=== PATIENT | female | born 1950 | race Caucasian/White ===

== ENCOUNTER → 2019-04-26 | Outpatient (CLI) | payer SELFPAY ==
--- NOTE | 2019-04-26 12:38 | RAD ---
EXAM: Right lower extremity venous Doppler. HISTORY: Right lower extremity edema. Pain in right foot. COMPARISON: None. FINDINGS: Grayscale and Doppler analysis of the right lower extremity deep venous systems was performed with graded compression and augmentation. The common femoral, greater saphenous, superficial femoral, popliteal and calf veins were assessed. There is no evidence of deep venous thrombosis. IMPRESSION: 1. No evidence of deep venous thrombosis in the right lower extremity. Electronically signed by: Aide Simon MD (04/26/2019 12:35 PM) [id number]
== END | disposition home or self-care (01) ==
LOC: US 11:43
PROVIDERS: ATTEND Family Medicine
DX: R60.0 Localized edema (principal); M79.671 Pain in right foot
CPT/HCPCS: 93971

== ENCOUNTER → 2019-09-17 | Outpatient (CLI) | payer MEDICARE ==
[~2019-09-17] MED LIST: AZIT1PAC9 PO; IOHEXOL 350 MG/ML 100 ML VIAL. IV ONE; OXYC1TAB19 PO; PRED20TA PO
--- NOTE | 2019-09-17 14:59 | RAD ---
Examination: CT angiography chest with IV contrast HISTORY: History of elevated d-dimer COMPARISON: 05/14/2017 Technique: Axial CT angiographic images of chest were performed with IV contrast and coronal sagittal 3-D MIP reformats are performed Exposure: One or more of the following individualized dose reduction techniques were utilized for this examination: 1. Automated exposure control 2. Adjustment of the mA and/or kV according to patient size 3. Use of iterative reconstruction technique FINDINGS: Mild cardiomegaly. Coronary artery calcifications. Caliber of the aorta grossly appears unremarkable. Moderate aortic atherosclerosis. There is no evidence of filling defect identified in the main pulmonary arterial trunk and right and left main pulmonary arteries and the visualized lobar, segmental branch pulmonary arteries. Opacity identified in the right infrahilar region posteriorly less prominent compared to prior exam could be postradiation changes or residual malignancy or recurrence. Compared to 2018 this is significantly decreased in size. Linear airspace opacity identified in the left lower lobe of the lung. Moderate to severe bilateral lung emphysematous changes. Faint opacity identified in the right upper lobe of the lung measuring 1.1 cm. The visualized liver, spleen, adrenals grossly appears unremarkable. Moderate to severe compression changes of T6, T7 and T8 vertebral levels with kyphoplasty changes at T8 vertebral level. IMPRESSION: 1. No evidence of pulmonary embolism. 2. Opacity identified in the right infrahilar region posteriorly less prominent compared to prior exam could be postradiation changes or residual malignancy or recurrence. Compared to 2018 this is significantly decreased in size 3.Moderate to severe compression changes of T6, T7 and T8 vertebral levels with kyphoplasty changes at T8 vertebral level. 4. Moderate to severe bilateral lung emphysematous changes. Electronically signed by: Cresencio Gomez MD (09/17/2019 2:55 PM) [id number]
== END | disposition home or self-care (01) ==
LOC: CT 13:38
PROVIDERS: ATTEND Family Medicine
DX: I25.10 Atherosclerotic heart disease of native coronary artery without angina pectoris (principal); J43.8 Other emphysema; R06.02 Shortness of breath; I51.7 Cardiomegaly; I70.0 Atherosclerosis of aorta
CPT/HCPCS: 71275; Q9967

== ENCOUNTER 2019-09-20 20:05 | Inpatient (IN) | payer MEDICARE ==
[~2019-09-20] VITALS: Ht 157.5 cm; Wt 44.8 kg
[2019-09-20] MEDS ORDERED: IPRATRPIUM/ALBUTEROL 0.5/2.5MG 3 ML NEBU. NEB ONE ×2 (20:15→23:00)
--- NOTE | 2019-09-20 20:42 | EKG ---
[address] [address] Test Date: 2019-09-20 Test Time: 20:15:55 Pat Name: KATARINA JUNG Department: Room: Gender: F Embedded Hardware Engineer: : 1950 Requested By: HEVER ROGERS Order Number: [id number] Reading MD: Measurements Intervals Vernon Rate: 99 P: 41 ID: [id number] QRS: -44 QRSD: 74 T: 20 QT: 360 QTc: 462 Interpretive Statements SINUS RHYTHM LEFT ATRIAL ABNORMALITY ABNORMAL LEFT AXIS DEVIATION R-S TRANSITION ZONE IN V LEADS DISPLACED TO THE LEFT QRS(T) CONTOUR ABNORMALITY CONSISTENT WITH INFERIOR INFARCT PROBABLY OLD ABNORMAL ECG RI6.02 No previous ECG available for comparison
--- NOTE | 2019-09-20 20:54 | PHYS DOC ---
Past History Past Medical History: Cancer (lung), CHF, COPD, Hypertension Additional Past Surgical Histo: Left lung lobectomy Smoking: Quit Less Than 1 Year Alcohol Use: Rarely Drug Use: None General Adult EDM: Chief Complaint: DYSPNEA/RESPIRATOY DISTRESS HPI: HPI: 68 year old female presents with history of progressive shortness of breath x 1 week. Patient with pmh of COPD, lung cancer s/p lobectomy, and CHF. Reports she no longer smokes. Reports seen by PCP and started on regimen for presumed bronchitis which is not helping. Denies trauma. Denies leg swelling or calf tenderness. Denies trauma. Review of Systems: Review of Systems: Constitutional: Denies fever or chills Eyes: Denies change in visual acuity, redness, or eye pain HENT: Denies nasal congestion or sore throat Respiratory: Reports cough and shortness of breath Cardiovascular: Denies chest pain or palpitations GI: Denies abdominal pain, nausea, vomiting, or diarrhea : Denies dysuria or hematuria Musculoskeletal: Denies back pain or joint pain Integument: Denies rash or skin lesions Neurologic: Denies headache, focal weakness or sensory changes Complete systems were reviewed and found to be within normal limits, except as documented in this note. Current Medications: Current Meds: Current Medications Medications (Trade) Dose Ordered Sig/Damon Start Time Stop Time Status Last Admin Dose Admin Albuterol/ Ipratropium (Duoneb) 3 ml 1X ONCE 09/20/19 20:15 09/20/19 20:16 DC 09/20/19 20:19 3 ML Allergies: Allergies: Allergies Coded Allergies Type Severity Reaction Last Updated Verified No Known Drug Allergies 09/17/19 No Physical Exam: PE: Constitutional: Well developed, well nourished, increased respiratory effort HENT: Normocephalic, atraumatic Eyes: Conjunctiva normal, no discharge Neck: Normal range of motion, supple, no meningeal signs Lungs & Thorax: Equal chest rise and fall, increased respiratory effort Abdomen: Soft, no tenderness Skin: Warm, dry, no erythema, no rash Extremities: No tenderness, ROM intact, no edema Neurologic: Alert and oriented X 3, no focal deficits noted Psychologic: Affect normal, judgement normal Current Patient Data: Vital Signs: Vital Signs Date Time Temp Pulse Resp B/P (MAP) Pulse Ox O2 Delivery O2 Flow Rate FiO2 09/20/19 20:26 94 Venturi Mask 9.0 09/20/19 20:12 98.0 102 24 116/76 (89) EKG: EKG: @2015 NSR at 99bpm, NO ST elevation, QRS 74ms, QT/QTc 360/462ms Radiology/Procedures: Radiology/Procedures: PROCEDURE: PORTABLE CHEST 1V Chest AP portable at 2018: Reason for examination: Dyspnea. Comparison is made to previous study dated 05/16/2006. Port-A-Cath is present on the right with the tip in the superior vena cava/right atrial junction. Surgical clips are seen at the left hilum. The heart size is normal. Mediastinum is otherwise unremarkable. Lung khan show some volume loss in the left lung field with mediastinal shift and elevation of the left hemidiaphragm. No acute infiltrates or pleural effusions are seen. There appears to been resection of the left ninth rib. No acute bony abnormalities are evident. IMPRESSION: Postop changes in the left hemithorax. No acute cardiopulmonary disease evident. Electronically signed by: Michelle Greenberg MD (09/20/2019 9:25 PM) [facility] Course & Med Decision Making: Course & Med Decision Making Pertinent Labs and Imaging studies reviewed. (See chart for details) Patient with significant respiratory disease presents with report of progressive SOA despite outpatient management with PCP. Patient also requiring increased supplemental O2. Concern for possible COVID19. COVID precautions in place. COVID testing pending. EKG stable. Labs obtained and posted to chart. CXR stable. Patient requiring admission for further evaluation and treatment. Discussed with Dr. Duran (PCP) who is in agreement with admit. Discussed findings and plan with patient, who acknowledges understanding and agreement. Dragon Disclaimer: Dragon Disclaimer: This electronic medical record was generated, in whole or in part, using a voice recognition dictation system. Departure Departure: Impression: Primary Impression: COPD exacerbation Additional Impressions: Suspected 2019 novel coronavirus infection Failure of outpatient treatment Hypoxia Disposition: ADMITTED INPATIENT Admitting Physician: Gilma Duran Condition: GUARDED Referrals: GILMA DURAN MD (PCP) Scripts Azithromycin (AZITHROMYCIN PACKET) 1 Gm Packet 1 PACKET PO tad one packet for bronchitis for 1 Day, #5 PACKET 0 Refills dissolve in 2 ounces of water Prov: GILMA DURAN MD 09/22/19 Prednisone (PREDNISONE) 20 Mg Tablet 20 MG PO DAILY for copd for 30 Days, #30 TAB 6 Refills Prov: GILMA DURAN MD 09/22/19 Oxycodone Hcl/Acetaminophen (PERCOCET 7.5-325 MG TABLET ) 1 Each Tablet 1 TAB PO PRN Q8HRS PRN for PAIN for 7 Days, #20 TAB 0 Refills Prov: GILMA DURAN MD 09/22/19 Justification of Admission: Justification of Admission: Justification of Admission Dx: Yes Comments: COPD exacerbation, Failed outpatient therapy, hypoxia COVID-19 Assessment COVID-19 Patient Risks: Age 65 or older: Yes Sign of co-morbidity: Yes Exp to person + for COVID: No Exp to PUI: No Travel from affected area: No Lower respiratory symptoms: Yes Fever: No PPE Use: Full PPE with N95 mask or PAPR: Yes Critical Care Time Critical care time was 30 minutes which includes time at bedside, spent in discussion of patient's care with specialists and/or family members, with interpretation of laboratory and/or radiological studies and is exclusive of procedures. HEVER ROGERS DO Sep 20, 2019 20:54
[2019-09-20 21:05] LABS: BASO # 0.1 x10^3/uL (0.0-0.2); BASO % 1 % (0-3); EOS % 0 % (0-3); HEMATOCRIT 38.6 % (36.0-47.0); LYMPH # 1.9 x10^3/uL (1.0-4.8); LYMPH % 21 % (24-48); MEAN CORPUSCULAR HEMOGLOBIN 31 pg (25-35); MEAN CORPUSCULAR HGB CONC 34 g/dL (31-37); MEAN CORPUSCULAR VOLUME 93 fL (79-100); MONO # 0.8 x10^3/uL (0.0-1.1); MONO % 9 % (0-9); NEUT # 6.3 x10^3uL (1.8-7.7); NEUT % 69 % (31-73); PLATELET COUNT 392 x10^3/uL (140-400); RED BLOOD COUNT 4.16 x10^6/uL (3.50-5.40); RED CELL DISTRIBUTION WIDTH 14.2 % (11.5-14.5)
[2019-09-20 21:10] LABS: ANION GAP 7 (6-14); BLOOD UREA NITROGEN 14 mg/dL (7-20); BUN/CREATININE RATIO 16 (6-20); CALCIUM 8.7 mg/dL (8.5-10.1); CARBON DIOXIDE 35 mmol/L (21-32); CHLORIDE 94 mmol/L (98-107); CREATININE 0.9 mg/dL (0.6-1.0); GFR 62.6; GLUCOSE 137 mg/dL (70-99); POTASSIUM 3.6 mmol/L (3.5-5.1); SODIUM 136 mmol/L (136-145)
[2019-09-20 21:26] LABS: ALBUMIN 3.2 g/dL (3.4-5.0); ALBUMIN/GLOBULIN RATIO 0.7 (1.0-1.7); ALK PHOS 87 U/L (46-116); ALT (SGPT) 15 U/L (14-59); AST (SGOT) 13 U/L (15-37); TOTAL BILIRUBIN 0.4 mg/dL (0.2-1.0); TOTAL PROTEIN 7.5 g/dL (6.4-8.2)
--- NOTE | 2019-09-20 21:28 | RAD ---
Chest AP portable at 2018: Reason for examination: Dyspnea. Comparison is made to previous study dated 05/16/2006. Port-A-Cath is present on the right with the tip in the superior vena cava/right atrial junction. Surgical clips are seen at the left hilum. The heart size is normal. Mediastinum is otherwise unremarkable. Lung khan show some volume loss in the left lung field with mediastinal shift and elevation of the left hemidiaphragm. No acute infiltrates or pleural effusions are seen. There appears to been resection of the left ninth rib. No acute bony abnormalities are evident. IMPRESSION: Postop changes in the left hemithorax. No acute cardiopulmonary disease evident. Electronically signed by: Michelle Greenberg MD (09/20/2019 9:25 PM) LIAM
[2019-09-20] MEDS ORDERED: ACETAMINOPHEN 325 MG TABLET PO PRN (22:15)
[2019-09-20] MEDS ORDERED: ONDANSETRON PF 4 MG/2 ML VIAL. IVP PRN (22:15)
[2019-09-20] MEDS ORDERED: oxyCODONE/APAP 10/325 1 TAB TABLET PO ONE (23:00)
[2019-09-20] MEDS ORDERED: ALBUTEROL SULFATE 8GM INHALER. INH PRN (23:00)
[2019-09-20 23:33] LABS: BACTERIA,URINE MANY /HPF (0-FEW); BILIRUBIN,URINE NEG (NEG); CLARITY,URINE HAZY; COLOR,URINE YELLOW; GLUCOSE,URINE NEG (NEG); NITRITE,URINE NEG (NEG); RBC,URINE OCC /HPF (0-2); SQUAMOUS EPITHELIAL CELL,UR OCC /LPF; UROBILINOGEN,URINE 0.2 mg/dL (0.2 mg/dL)
[2019-09-21 00:27] VITALS: BP 105/61
[2019-09-21 03:00] VITALS: BP 120/63
[2019-09-21 06:40] VITALS: BP 112/67
[2019-09-21] MEDS ORDERED: IPRATRPIUM/ALBUTEROL 0.5/2.5MG 3 ML NEBU. NEB SCH ×2 (08:00)
[2019-09-21 11:00] VITALS: BP 139/79
[2019-09-21] MEDS: IPRATROPIUM/ALBUTEROL 20/100mcg/INH INHALER. INH SCH ×3 (11:14→20:38)
[2019-09-21] MEDS: oxyCODONE/APAP 7.5/325 1 TAB TABLET PO PRN ×2 (11:14→19:04)
[2019-09-21] MEDS: predniSONE 20 MG TABLET PO SCH (11:14)
[2019-09-21 15:12] VITALS: BP 105/73
[2019-09-21 20:00] VITALS: BP 119/71
--- NOTE | 2019-09-21 21:47 | HP ---
ADMIT DATE: 09/20/2019 HISTORY OF PRESENT ILLNESS: A 68-year-old female who came in through the Emergency Room with increased shortness of breath. The patient has a history of lung cancer and consequently was feeling increasingly short of breath using 4-8 liters of oxygen to maintain her oxygen saturation above 80%. The patient is quite weak and worn out. She has noted to have lung cancer and is undergoing chemoradiation therapy, although there has been some improvement of her situation there. In any case, the patient was admitted for acute respiratory distress, acute exacerbation of COPD and possible bronchitis as well as history of lung cancer. PAST MEDICAL HISTORY: CHF, hypertension, COPD, emphysema, lobectomy of the left lung, oxygen administration, smoking, smoking cessation approximately a very strict month two years ago, [id number] history of smoking. FAMILY HISTORY: Positive for coronary artery disease. MEDICATIONS: The patient did not have up-to-date list of her medications for outpatient use. Previous outpatient medications including fentanyl, DuoNeb treatments, ipratropium and oxycodone for pain relief. ALLERGIES: No known allergies. SOCIAL HISTORY: A [id number] history of smoking. Very rare alcohol use and she is a full code. REVIEW OF SYSTEMS: The patient notes some loss of weight, poor appetite, shortness of breath with minimal exertion and at rest. Denies chest pain, abdominal pain. Denies any nausea, vomiting, melena, hematochezia, hematemesis, fever, chills and so forth. Neurologically baseline. PHYSICAL EXAMINATION: GENERAL: This is a pleasant white female looking a little bit older than her stated age. VITAL SIGNS: Blood pressure that of 105/70, respiratory rate 20, pulse 105, afebrile. The patient has been on 4 liters at 88% and had use a Venturi mask to get a backup above 90. HEENT: Otherwise, the head was atraumatic, normocephalic. Eyes: PERRLA without jaundice. Mouth and throat were normal. NECK: Supple. No JVD, carotid bruits or thyromegaly. LUNGS: Diminished throughout with poor movement of air. No rhonchi or rales noted. CARDIOVASCULAR: Regular sinus rhythm, tachycardic. ABDOMEN: Soft, scaphoid. EXTREMITIES: No clubbing, cyanosis or edema. NEUROLOGIC: Alert and oriented, but markedly short of breath with minimal talking. LABORATORY DATA: The patient's sodium and potassium 136 and 3.6, BUN and creatinine 14 and 0.9. BNP elevated at 415. The patient's white count of 9, hemoglobin and hematocrit 13 and 38. IMPRESSION: Acute on top of chronic exacerbation of chronic obstructive pulmonary disease, lung cancer, emphysema, hypoxia. PLAN: The patient will be admitted, placed on some breathing treatments, some prednisone and see how she responds to this accordingly before making any other adjustments. GILMA DURAN MD DR: PAIGE/smiley JOB#: [id number] / [id number]
[2019-09-22] MEDS: oxyCODONE/APAP 7.5/325 1 TAB TABLET PO PRN (03:31)
[2019-09-22] MEDS ORDERED: OXYC1TAB19 PO (08:31)
[2019-09-22] MEDS ORDERED: PRED20TA PO (08:31)
[2019-09-22] MEDS ORDERED: AZIT1PAC9 PO (08:31)
[2019-09-22] MEDS: IPRATROPIUM/ALBUTEROL 20/100mcg/INH INHALER. INH SCH (08:35)
[2019-09-22] MEDS: predniSONE 20 MG TABLET PO SCH (09:00)
== END 2019-09-22 09:55 | disposition home or self-care (01) | DRG 189 ==
LOC: ER 20:05 → ICU 22:19
PROVIDERS: ADMIT Family Medicine; ATTEND Family Medicine
DX: J96.20 Acute and chronic respiratory failure, unspecified whether with hypoxia or hypercapnia (principal); C34.90 Malignant neoplasm of unspecified part of unspecified bronchus or lung; J43.9 Emphysema, unspecified; R09.02 Hypoxemia; J20.9 Acute bronchitis, unspecified; I11.0 Hypertensive heart disease with heart failure; I50.9 Heart failure, unspecified; Z20.828 Contact with and (suspected) exposure to other viral communicable diseases; Z82.49 Family history of ischemic heart disease and other diseases of the circulatory system; Z85.118 Personal history of other malignant neoplasm of bronchus and lung; Z87.891 Personal history of nicotine dependence
CPT/HCPCS: 36415; 71045; 80053; 81001; 82553; 83880; 84484; 85025; 87077; 87086; 87186; 93005; 94640; 96374; 99291; J3010; J7512; U0003-CS

== ENCOUNTER 2019-11-21 13:06 | Inpatient (IN) | payer MEDICARE, BC ==
[~2019-11-21] VITALS: Ht 157.5 cm; Wt 45.0 kg
[~2019-11-21 13:06] MED LIST changes: -IOHEXOL 350 MG/ML 100 ML VIAL. IV ONE
[2019-11-21 13:36] VITALS: BP 138/88
[2019-11-21] MEDS ORDERED: ACETAMINOPHEN/CODEINE 300/30MG TABLET PO PRN (14:00)
[2019-11-21] MEDS: valACYclovir 500 MG TABLET. PO SCH ×2 (15:02→22:27)
[2019-11-21 15:10] LABS: BASO % 1 % (0-3); EOS % 0 % (0-3); HEMATOCRIT 37.1 % (36.0-47.0); HEMOGLOBIN 12.3 g/dL (12.0-15.5); LYMPH # 1.8 x10^3/uL (1.0-4.8); LYMPH % 29 % (24-48); MEAN CORPUSCULAR HEMOGLOBIN 30 pg (25-35); MEAN CORPUSCULAR HGB CONC 33 g/dL (31-37); MEAN CORPUSCULAR VOLUME 92 fL (79-100); MONO # 0.5 x10^3/uL (0.0-1.1); MONO % 8 % (0-9); NEUT # 3.9 x10^3uL (1.8-7.7); NEUT % 63 % (31-73); PLATELET COUNT 313 x10^3/uL (140-400); RED BLOOD COUNT 4.05 x10^6/uL (3.50-5.40); RED CELL DISTRIBUTION WIDTH 15.8 % (11.5-14.5); WHITE BLOOD COUNT 6.2 x10^3/uL (4.0-11.0)
[2019-11-21 15:18] LABS: ALBUMIN 2.9 g/dL (3.4-5.0); ALBUMIN/GLOBULIN RATIO 0.7 (1.0-1.7); CALCIUM 8.9 mg/dL (8.5-10.1); CREATININE 0.7 mg/dL (0.6-1.0); GFR 83.7; POTASSIUM 4.5 mmol/L (3.5-5.1); TOTAL BILIRUBIN 0.3 mg/dL (0.2-1.0); TOTAL PROTEIN 7.1 g/dL (6.4-8.2)
[2019-11-21] MEDS: oxyCODONE/APAP 7.5/325 1 TAB TABLET PO PRN (18:05)
--- NOTE | 2019-11-21 18:29 | NUR ---
NURSING NOTE: ADMISSION PT ARRIVED TO UNIT FROM HOME VIA WC. PT SETTLED IN ROOM, LABS DRAWN, IV STARTED. ADMISSION COMPLETE. PT RESTING IN ROOM. NOTIFIED. WILL CONTINUE TO MONITOR. MIRIAM FRANKLIN
[2019-11-21 19:59] VITALS: BP 133/69
[2019-11-21] MEDS ORDERED: ZOLPIDEM 5 MG TABLET. PO PRN (22:45)
[2019-11-21 23:19] VITALS: BP 135/75
[2019-11-22] MEDS: oxyCODONE/APAP 7.5/325 1 TAB TABLET PO PRN ×2 (04:25→12:53)
--- NOTE | 2019-11-22 05:44 | NUR ---
Pt slept through the night. She woke up a couple times to toilet. She is taking oxycodone for pain but fdc through the prescribed time she is asking for more pain medication. Pt struggles to breathe when adjusting in bed or getting up to toilet. Oxygen saturations checked and within normal limits. Will continue to monitor.
[2019-11-22 05:58] VITALS: BP 148/83
[2019-11-22] MEDS: valACYclovir 500 MG TABLET. PO SCH ×3 (08:58→21:29)
[2019-11-22] MEDS ORDERED: predniSONE 20 MG TABLET PO SCH (09:00)
[2019-11-22] MEDS ORDERED: FLU VACC QS 2020-21(6MOS+)/PF 0.5 ML SYRINGE. VAX IM ONE (09:00)
[2019-11-22 10:04] VITALS: BP 154/74
[2019-11-22] MEDS ORDERED: AZITHROMYCIN PO SCH (10:30)
[2019-11-22] MEDS ORDERED: AZITHROMYCIN 250 MG TABLET. PO ONE (11:00)
[2019-11-22] MEDS ORDERED: IPRATRPIUM/ALBUTEROL 0.5/2.5MG 3 ML NEBU. NEB SCH ×2 (11:45→12:00)
--- NOTE | 2019-11-22 13:02 | PN ---
DATE: SUBJECTIVE: A 68-year-old female with herpes zoster to the left chest wall area, but more importantly it got infected and has cellulitis to that area. The areas were quite inflamed. A large swath of skin was also peeling off the patient's chest wall as well as her flank area going around to the spine as well as the patient had negative results with oral antibiotics as an outpatient. She was admitted for some IV antibiotics and they have definitely improved this infectious process. OBSERVATION: VITAL SIGNS: Blood pressure 154/74, respirations 24, pulse of 115. Afebrile. She is on 4 liters at 92. GENERAL: She has a history of lung cancer. The patient is alert and oriented, frail-appearing female. LUNGS: Diminished. INTEGUMENTARY: The patient's skin is peeling off of her left chest wall as well as the left rib cage and upper back area where the shingles were. The patient also shows an infection, cellulitis that is improving. We will go ahead and continue to monitor the patient accordingly. Further evaluation on her as indicated. IMPRESSION: Cellulitis to the thoracic wall, herpes zoster, lung cancer, severe protein malnutrition. PLAN: As above. We will continue to monitor accordingly and make further evaluation as indicated with these situations. Also, she needs breathing treatments for her hypoxia and chronic respiratory failure. CRISTHIAN ANNA MD DR: IGNACIA/smiley JOB#: [id number] / [id number]
--- NOTE | 2019-11-22 13:15 | RAD ---
EXAM: CHEST PA LATERAL INDICATION: Reason: soa . TECHNIQUE: PA and lateral views COMPARISON: 09/20/2019 chest x-ray FINDINGS: Right jugular approach tunneled chest port is redemonstrated, tip terminating near the cavoatrial junction. The heart size is normal. Great vessels show aortic calcification similar to prior. There are surgical clips in the vicinity of the aortopulmonary window. There is persistent opacity at the left hilum adjacent to surgical clips that could reflect postop change. The right hilum is unremarkable on this projection. Lungs are hyperlucent at the apices and show coarse reticular densities but improved aeration and volume in the interval. There is an ill-defined opacity in the right upper lung projecting over the posterior right fifth rib. This appears to have increased in the interval. Otherwise no acute findings in the lungs are noted. Left lower lobe atelectatic changes with diaphragmatic elevation are evident. There is no pleural effusion or pneumothorax. The bones are diffusely osteopenic and vertebroplasty cement in the mid thoracic spine is redemonstrated along with wedge compression fracture at the level above that, resulting in exaggeration of normal thoracic kyphosis. IMPRESSION: COPD with developing atelectasis at the left lung base. In addition, an opacity in the right upper lobe is more apparent, which is possibly related to projection. This can be reassessed on elective chest CT as clinically warranted. Electronically signed by: Aide Simon MD (11/22/2019 1:12 PM) [id number]
[2019-11-22] MEDS ORDERED: FUROSEMIDE 20 MG/2 ML VIAL IVP ONE (14:30)
[2019-11-22 14:58] VITALS: BP 133/74
[2019-11-22] MEDS: IPRATRPIUM/ALBUTEROL 0.5/2.5MG 3 ML NEBU. NEB SCH ×2 (17:00→19:47)
[2019-11-22] MEDS: LORazepam 0.5 MG TABLET PO PRN (18:36)
[2019-11-22 20:41] VITALS: BP 134/80
[2019-11-22] MEDS: DEXAMETHASONE SOD PHOS 4 MG/ML VIAL. IVP SCH (21:29)
[2019-11-23] MEDS: LORazepam 0.5 MG TABLET PO PRN ×2 (00:15→09:32)
[2019-11-23] MEDS: oxyCODONE/APAP 7.5/325 1 TAB TABLET PO PRN ×2 (01:26→09:32)
[2019-11-23] MEDS: IPRATRPIUM/ALBUTEROL 0.5/2.5MG 3 ML NEBU. NEB SCH ×2 (04:57→11:48)
[2019-11-23 06:18] VITALS: BP 140/77
[2019-11-23] MEDS ORDERED: AZITHROMYCIN 250 MG TABLET. PO SCH (09:00)
[2019-11-23] MEDS: DEXAMETHASONE SOD PHOS 4 MG/ML VIAL. IVP SCH (09:32)
[2019-11-23] MEDS: valACYclovir 500 MG TABLET. PO SCH (09:37)
[2019-11-23] MEDS ORDERED: IPRA3AMP29 NEB (11:11)
[2019-11-23] MEDS ORDERED: VALA500T9 PO (11:11)
[2019-11-23] MEDS ORDERED: CEPH500C PO (11:11)
[2019-11-23] MEDS ORDERED: AZIT250T6 PO (11:11)
--- NOTE | 2019-11-23 12:19 | DS ---
DATE OF DISCHARGE: HOSPITAL COURSE: A 68-year-old female who developed herpes zoster to her left flank area that surrounded from her back to the breast area on the left side; however, what happened was the blistering areas became markedly infected and she developed cellulitis to a large swath of skin with peeling of the skin as well as dried blistering to that area of the chest wall and flank and back area in a classic dermatome of the herpes zoster. Anyway, she had failed outpatient therapy. She has comorbidities of lung cancer and been on chemo and radiation therapy, but this was not related to those per se. The patient made good progress. We placed her on IV Ancef and this seemed to help her. She did have an elevated pulse of 104, blood pressure 138/80, temperature was around 99. The patient's respiratory rate was 24. She did have some problems with some breathing and had to be increased on her nasal cannula, which she is on chronically because of her underlying COPD. In any case, the patient made good progress. We gave her some breathing treatments, placed her on some oral antibiotics as well. The patient in turn made excellent progress and she was discharged home on oral antibiotics. She was started on some Zithromax for acute bronchitis. She was also given some cefdinir for the cellulitis. In any case, she made good progress. See MRAD. Decreased activity. IMPRESSION: Cellulitis to the chest wall and flank area secondary to a complication of herpes zoster, history of lung cancer, chronic obstructive pulmonary disease, failure of outpatient therapy, severe protein malnutrition. PLAN: As above. Continue to monitor her and accordingly make further evaluation as noted. GILMA DURAN MD DR: PAIGE/smiley JOB#: [id number] / [id number]
--- NOTE | 2019-11-23 12:23 | NUR ---
PATIENT IS DISCHARGED HOME WITH FAMILY. PATIENTS IV IS DC'D TELE MONITOR REMOVED. PATIENT IS STABLE AT TIME OF DISCHARGE. PATIENT HAS ALL BELONGINGS AND MEDICATIONS AT TIME OF DISCHARGE.
== END 2019-11-23 12:23 | disposition home or self-care (01) | DRG 865 ==
LOC: 1 SOUTH 13:06
PROVIDERS: ADMIT Family Medicine; ATTEND Family Medicine
DX: B02.8 Zoster with other complications (principal); E43 Unspecified severe protein-calorie malnutrition; L03.312 Cellulitis of back [any part except buttock and flank]; J44.0 Chronic obstructive pulmonary disease with (acute) lower respiratory infection; Z68.1 Body mass index [BMI] 19.9 or less, adult; J96.11 Chronic respiratory failure with hypoxia; L02.213 Cutaneous abscess of chest wall; J20.9 Acute bronchitis, unspecified; Z85.118 Personal history of other malignant neoplasm of bronchus and lung; Z92.21 Personal history of antineoplastic chemotherapy
CPT/HCPCS: 36415; 71046; 80053; 85025; 90471; 94640; J0456; J0690; J1100; J7512; 90686

== ENCOUNTER 2020-01-16 11:12 | Inpatient (IN) | payer MEDICARE ==
[~2020-01-16] VITALS: Ht 157.5 cm; Wt 46.5 kg
[~2020-01-16 11:12] MED LIST changes: +AZIT250T6 PO; +CEPH500C PO; +IPRA3AMP29 NEB; +VALA500T9 PO
--- NOTE | 2020-01-16 11:37 | PHYS DOC ---
Past History Past Medical History: Cancer, CHF, COPD, Hypertension Additional Past Surgical Histo: Left lung lobectomy Smoking: Quit Less Than 1 Year Alcohol Use: Rarely Drug Use: None General Adult EDM: Chief Complaint: DYSPNEA/RESPIRATOY DISTRESS HPI: HPI: 69-year-old female past medical history significant for stage 3 lung cancer (diagnosed 2 yrs ago), COPD on 4 L, tobacco cessation 1 year ago, severe protein malnutrition with admission 2 months ago for cellulitis, presents to the ED with complaints of shortness of breath and increased work of breathing, no relief with inhaler/nebulizer at home, stating this feels like her copd. Reports her typical cough with brown phlegm, does not feel it has increased. Stopped chemo "months" ago due to it "not working." Reports she's getting "15 minute" infusions with her oncologist, no radiation. No h/o covid, does not feel as if she has been exposed. Review of Systems: Review of Systems: Constitutional: Denies fever or chills Eyes: Denies change in visual acuity HENT: Denies nasal congestion or sore throat Respiratory: Denies hemoptysis or respiatory fatigue Cardiovascular: Denies chest pain or edema GI: Denies abdominal pain, nausea, vomiting, bloody stools or diarrhea : Denies dysuria Musculoskeletal: Denies back pain or joint pain Integument: Denies rash Neurologic: Denies headache, focal weakness or sensory changes Endocrine: Denies polyuria or polydipsia Lymphatic: Denies swollen glands Psychiatric: Denies depression or anxiety Allergies: Allergies: Allergies Coded Allergies Type Severity Reaction Last Updated Verified No Known Drug Allergies 09/17/19 No Physical Exam: PE: Constitutional: afebrile, appears weak/frail HENT: Normocephalic, atraumatic, Eyes: EOMI, conjunctiva normal, no discharge. Neck: Normal range of motion, supple, Cardiovascular: S1/2 present, regular rhythm Lungs & Thorax: Speaking in 1-2 word full sentences, +tachypneic with speech- sternal retractions, was 88% on 4L, diffuse expiratory wheezing, bl breath sounds, no crackles Abdomen: soft, no tenderness, Skin: Warm, dry, no erythema, no rash. [] Back: No tenderness, no CVA tenderness. [] Extremities: No tenderness, no cyanosis, RLE edema-calf increased when compared to left, pt reports "it's been like that awhile" Neurologic: Alert and oriented X 3, normal motor function, normal sensory function, no focal deficits noted. [] Psychologic: Affect normal, judgement normal, mood normal. [] EKG: EKG: Sinus tachycardia at 113 bpm, left axis deviation, normal intervals, T wave inversion in V3, no ST elevations or ST depressions Radiology/Procedures: Radiology/Procedures: IMAGING REPORT Signed PATIENT: KATARINA JUNG ACCOUNT: [id number] : 1950 LOCATION: ER AGE: 69 SEX: F EXAM STATUS: REG ER ORD. PHYSICIAN: MARIA DE JESUS FOLEY DO REASON: soa, r/o pe PROCEDURE: CT ANGIOGRAPHY CHEST CTA CHEST INDICATION: soa, r/o pe Comparison: 09/17/2011. TECHNIQUE: Following the uneventful administration of intravenous contrast, 75 cc Omnipaque 350, axial CT sections were obtained through the lungs and upper abdomen. Multiplanar reconstructions and MIP images were obtained. PQRS compliance statement: One or more of the following individualized dose reduction techniques were utilized for this examination: 1. Automated exposure control 2. Adjustment of the mA and/or kV according to patient size 3. Use of iterative reconstruction technique FINDINGS: Pulmonary arteries: No evidence of pulmonary thromboembolic disease. Lungs and Airways: Increased size of right upper lobe spiculated opacity with increasing solid component measuring 1.8 cm (series 4 image 38), previously 1.1 cm. Stable left perihilar soft tissue thickening, volume loss, architectural distortion, and bronchiectasis. No new consolidation. Paraseptal and centrilobular emphysema. No abnormality of the central airways. Pleura: The pleural spaces are normal. Heart and Mediastinum: The visualized thyroid is normal in size and attenuation. No axillary or supraclavicular lymphadenopathy. Cardiomegaly. Coronary artery atherosclerotic disease. Atherosclerosis of the thoracic aorta. Abdomen: Limited images through the upper abdomen show no abnormality of the visualized organs. Bones and Soft Tissues: Unchanged compression deformities at T6, T7, and T8 with changes of vertebral augmentation at T8. Degenerative changes of the spine. IMPRESSION: 1. No evidence of pulmonary thromboembolic disease. 2. Increased size of the right upper lobe spiculated opacity measuring 1.8 cm, concerning for primary lung neoplasm. Based on size this may be amenable to PET/CT. Alternatively, consider 3 month follow-up CT or tissue sampling. 3. Stable left perihilar soft tissue thickening with architectural distortion and volume loss, possibly postradiation change. Electronically signed by: Rhea Streeter MD (01/16/2020 1:30 PM) [id number] DICTATED AND SIGNED BY: RHEA STREETER MD DATE: 01/16/20 1310 CC: GILMA DURAN MD; MARIA DE JESUS FOLEY DO ~MTH0 0 IMAGING REPORT Signed PATIENT: KATARINA JUNG ACCOUNT: [id number] : 1950 LOCATION: ER AGE: 69 SEX: F EXAM STATUS: REG ER ORD. PHYSICIAN: MARIA DE JESUS FOLEY DO REASON: soa PROCEDURE: PORTABLE CHEST 1V INDICATION: Reason: soa / Spl. Instructions: / History: COMPARISON: November 2019 FINDINGS: Single view of chest obtained. Cardiomediastinal silhouette is enlarged with calcific atherosclerosis. Disorganized pulmonary markings bilaterally with multifocal opacities seen. There is fullness of the left pulmonary hilum and left perihilar opacity as well as nodular opacity at the right upper lung. Old deformity of the right proximal humerus IMPRESSION: * Disorganized pulmonary markings bilaterally with interstitial and alveolar opacities. This could be a combination of chronic interstitial lung disease with superimposed edema or infiltrate. * Nodular opacity in the right upper lung is again seen and could be infectious, inflammatory or neoplastic. There is also left perihilar opacity with the same differential. Electronically signed by: Katie Angelo MD (01/16/2020 1:09 PM) [id number] DICTATED AND SIGNED BY: KATIE ANGELO MD DATE: 01/16/20 1303 CC: GILMA DURAN MD; MARIA DE JESUS FOLEY DO ~MTH0 0 IMAGING REPORT Signed PATIENT: KATARINA JUNG ACCOUNT: [id number] : 1950 LOCATION: ER AGE: 69 SEX: F EXAM STATUS: REG ER ORD. PHYSICIAN: MARIA DE JESUS FOLEY DO REASON: rle swelling PROCEDURE: VENOUS LOWER EXTREMITY RIGHT Examination: US DPLX VENOUS EXTREMITY LOWER RT History: Reason: rle swelling / Spl. Instructions: / History: Comparison/Correlation: None Findings: Right lower extremity venous duplex ultrasound was performed. Compression and augmentation are utilized. Right common femoral, superficial femoral, proximal profunda femoris, great saphenous vein junction, popliteal, posterior tibial, and peroneal veins are normal with no thrombus identified. Normal compressibility evident. Impression: No right lower extremity DVT. Electronically signed by: Dylan Moon MD (01/16/2020 12:27 PM) [id number] DICTATED AND SIGNED BY: DYLAN MOON MD DATE: 01/16/201225 CC: GILMA DURAN MD; MARIA DE JESUS FOLEY DO ~MTH0 0 Heart Score: Risk Factors: Risk Factors: DM, Current or recent (<one month) smoker, HTN, HLP, family history of CAD, obesity. Risk Scores: Score 0 - 3: 2.5% MACE over next 6 weeks - Discharge Home Score 4 - 6: 20.3% MACE over next 6 weeks - Admit for Clinical Observation Score 7 - 10: 72.7% MACE over next 6 weeks - Early Invasive Strategies Course & Med Decision Making: Course & Med Decision Making Pertinent Labs and Imaging studies reviewed. (See chart for details) Concern for COPD exacerbation in the setting of SIRS, influenza negative. Covid test pending. No echo in EMR, BNP is elevated. Will admit to Dr. Duran for steroids and breathing treatments-failed outpatient management. Patient stable at time of admission and agrees with this plan. I have spoken with the patient and/or caregivers. I have explained the patient's condition, diagnosis and treatment plan based on the information available to me at this time. I have answered the patient's and/or caregivers questions and answered any concerns. The patient and/or caregivers have as good an understanding of the patient's diagnosis, condition and treatment plan as can be expected at this point. The patient has been stabilized within the capability of the emergency department. The patient will be transported for further care and management or will be moved to an observation or inpatient service. I have communicated with the staff or medical practitioner taking over this patient's care. Dragon Disclaimer: Dragon Disclaimer: This electronic medical record was generated, in whole or in part, using a voice recognition dictation system. Departure Departure: Impression: Primary Impression: COPD with exacerbation Additional Impression: Person under investigation for COVID-19 Disposition: ADMITTED INPT THIS HOSP Admitting Physician: Gilma Duran Condition: STABLE Referrals: GILMA DURAN MD (PCP) [facility]ES[facility] DO Jan 16, 2020 11:37
[2020-01-16] MEDS ORDERED: IV NORMAL SALINE 1,000ML 1,000 ML IV ONE (11:45)
[2020-01-16] MEDS ORDERED: IV NORMAL SALINE 1,000ML 1,000 ML IV SCH (11:45)
[2020-01-16] MEDS ORDERED: DEXAMETHASONE SOD PHOS 10 MG/ML VIAL. IV ONE (11:45)
[2020-01-16] MEDS ORDERED: IPRATRPIUM/ALBUTEROL 0.5/2.5MG 3 ML NEBU. NEB ONE (11:45)
[2020-01-16] MEDS ORDERED: PIPERACILLIN/TAZOBACTAM 4.5 GM in IV NORMAL SALINE 50ML 50 ML IV ONE (11:45)
[2020-01-16] MEDS ORDERED: PIPERACILLIN/TAZOBACTAM 4.5 GM VIAL IV ONE (11:52)
[2020-01-16] MEDS ORDERED: IV NORMAL SALINE 50ML 50 ML ONE (11:52)
[2020-01-16] MEDS ORDERED: VANCOMYCIN 1 GM VIAL. ONE (11:53)
[2020-01-16 12:00] LABS: BASO # 0.1 x10^3/uL (0.0-0.2); BASO % 1 % (0-3); EOS % 0 % (0-3); HEMATOCRIT 42.3 % (36.0-47.0); HEMOGLOBIN 13.8 g/dL (12.0-15.5); LYMPH # 2.4 x10^3/uL (1.0-4.8); LYMPH % 26 % (24-48); MEAN CORPUSCULAR HEMOGLOBIN 31 pg (25-35); MEAN CORPUSCULAR HGB CONC 33 g/dL (31-37); MEAN CORPUSCULAR VOLUME 96 fL (79-100); MONO # 0.5 x10^3/uL (0.0-1.1); MONO % 6 % (0-9); NEUT # 6.2 x10^3uL (1.8-7.7); NEUT % 67 % (31-73); PLATELET COUNT 416 x10^3/uL (140-400); RED BLOOD COUNT 4.42 x10^6/uL (3.50-5.40); RED CELL DISTRIBUTION WIDTH 15.9 % (11.5-14.5); WHITE BLOOD COUNT 9.2 x10^3/uL (4.0-11.0)
[2020-01-16] MEDS ORDERED: IOHEXOL 350 MG/ML 100 ML VIAL. IV ONE (12:00)
[2020-01-16] MEDS ORDERED: VANCOMYCIN 1.25 GM in IV NORMAL SALINE 500ML 500 ML IV ONE (12:00)
[2020-01-16 12:05] LABS: CALCIUM 9.4 mg/dL (8.5-10.1); CREATININE 0.8 mg/dL (0.6-1.0); GFR 71.5; POTASSIUM 4.7 mmol/L (3.5-5.1)
[2020-01-16 12:19] LABS: ALBUMIN 3.7 g/dL (3.4-5.0); ALBUMIN/GLOBULIN RATIO 0.8 (1.0-1.7); MAGNESIUM 1.8 mg/dL (1.8-2.4); TOTAL BILIRUBIN 0.5 mg/dL (0.2-1.0); TOTAL PROTEIN 8.1 g/dL (6.4-8.2)
--- NOTE | 2020-01-16 13:34 | RAD ---
INDICATION: Reason: soa / Spl. Instructions: / History: COMPARISON: November 2019 FINDINGS: Single view of chest obtained. Cardiomediastinal silhouette is enlarged with calcific atherosclerosis. Disorganized pulmonary markin gs bilaterally with multifocal opacities seen. There is fullness of the left pulmonary hilum and left perihilar opacity as well as nodular opacity at the right upper lung. Old deformity of the right pro ximal humerus IMPRESSION: * Disorganized pulmonary markings bilaterally with interstitial and alveolar opacities. This could b e a combination of chronic interstitial lung disease with superimposed edema or infiltrate. * Nodular opacity in the right upper lung is again seen and could be infectious, inflammatory or melvin plastic. There is also left perihilar opacity with the same differential. Electronically signed by: Carmelo Larson MD (01/16/2020 1:09 PM) [id number]
--- NOTE | 2020-01-16 13:34 | RAD ---
Examination: US DPLX VENOUS EXTREMITY LOWER RT History: Reason: rle swelling / Spl. Instructions: / History: Comparison/Correlation: None Findings: Right lower extremity venous duplex ultrasound was performed. Compression and augmentation are utilized. Right common femoral, superficial femoral, proximal profunda femoris, great saphenous vein junction, popliteal, posterior tibial, and peroneal veins are normal with no thrombus identified. Normal compre ssibility evident. Impression: No right lower extremity DVT. Electronically signed by: Dylan Castro MD (01/16/2020 12:27 PM) [id number]
--- NOTE | 2020-01-16 13:34 | RAD ---
CTA CHEST INDICATION: soa, r/o pe Comparison: 09/17/2011. TECHNIQUE: Following the uneventful administration of intravenous contrast, 75 cc Omnipaque 350, axia l CT sections were obtained through the lungs and upper abdomen. Multiplanar reconstructions and MIP images were obtained. PQRS compliance statement: One or more of the following individualized dose reduction techniques were utilized for this examinat ion: 1. Automated exposure control 2. Adjustment of the mA and/or kV according to patient size 3. Use of iterative reconstruction technique FINDINGS: Pulmonary arteries: No evidence of pulmonary thromboembolic disease. Lungs and Airways: Increased size of right upper lobe spiculated opacity with increasing solid compon ent measuring 1.8 cm (series 4 image 38), previously 1.1 cm. Stable left perihilar soft tissue thicke aby, volume loss, architectural distortion, and bronchiectasis. No new consolidation. Paraseptal and centrilobular emphysema. No abnormality of the central airways. Pleura: The pleural spaces are normal. Heart and Mediastinum: The visualized thyroid is normal in size and attenuation. No axillary or supra clavicular lymphadenopathy. Cardiomegaly. Coronary artery atherosclerotic disease. Atherosclerosis of the thoracic aorta. Abdomen: Limited images through the upper abdomen show no abnormality of the visualized organs. Bones and Soft Tissues: Unchanged compression deformities at T6, T7, and T8 with changes of vertebral augmentation at T8. Degenerative changes of the spine. IMPRESSION: 1. No evidence of pulmonary thromboembolic disease. 2. Increased size of the right upper lobe spiculated opacity measuring 1.8 cm, concerning for primary lung neoplasm. Based on size this may be amenable to PET/CT. Alternatively, consider 3 month follow- up CT or tissue sampling. 3. Stable left perihilar soft tissue thickening with architectural distortion and volume loss, possib ly postradiation change. Electronically signed by: Sukhi Streeter MD (01/16/2020 1:30 PM) [id number]
--- NOTE | 2020-01-16 13:34 | EKG ---
[address] [address] Test Date: 2020-01-16 Test Time: 11:47:06 Pat Name: KATARINA JUNG Department: Room: Gender: F Collar Turner: DAJUAN : 1950 Requested By: MARIA DE JESUS FOLEY Order Number: [id number] Reading MD: Measurements Intervals [place] Rate: 113 P: 51 CT: 138 QRS: -79 QRSD: 74 T: 20 QT: 314 QTc: 436 Interpretive Statements SINUS TACHYCARDIA LEFT ATRIAL ABNORMALITY ABNORMAL LEFT AXIS DEVIATION LOW LIMB LEAD VOLTAGE T ABNORMALITY IN ANTEROSEPTAL LEADS ABNORMAL ECG RI6.02 No previous ECG available for comparison
[2020-01-16 13:36] LABS: INFLUENZA A PATIENT NEGATIVE (NEGATIVE); INFLUENZA B PATIENT NEGATIVE (NEGATIVE)
[2020-01-16] MEDS ORDERED: ONDANSETRON PF 4 MG/2 ML VIAL. IVP PRN (15:30)
[2020-01-16] MEDS ORDERED: ACETAMINOPHEN 325 MG TABLET PO PRN (15:30)
[2020-01-16] MEDS ORDERED: IPRATRPIUM/ALBUTEROL 0.5/2.5MG 3 ML NEBU. NEB SCH ×2 (16:00→21:00)
[2020-01-16 16:45] VITALS: BP 155/90
[2020-01-16] MEDS ORDERED: LORazepam 0.5 MG TABLET PO PRN (17:30)
[2020-01-16 19:34] VITALS: BP 155/76
[2020-01-16] MEDS ORDERED: valACYclovir 500 MG TABLET. PO SCH (21:00)
[2020-01-16 23:42] VITALS: BP 137/70
[2020-01-17] MEDS: oxyCODONE/APAP 7.5/325 1 TAB TABLET PO PRN (03:40)
[2020-01-17 05:16] VITALS: BP 118/81
[2020-01-17] MEDS: IPRATROPIUM/ALBUTEROL 20/100mcg/INH INHALER. INH SCH ×5 (08:00→19:47)
[2020-01-17] MEDS: AZITHROMYCIN 250 MG TABLET. PO SCH (08:40)
[2020-01-17] MEDS ORDERED: predniSONE 20 MG TABLET PO SCH (09:00)
[2020-01-17 10:59] VITALS: BP 141/91
[2020-01-17 14:34] VITALS: BP 143/89
[2020-01-17] MEDS: predniSONE 20 MG TABLET PO SCH ×2 (18:15→19:47)
--- NOTE | 2020-01-17 18:56 | HP ---
ADMIT DATE: HISTORY OF PRESENT ILLNESS: A 69-year-old female, with history of lung cancer, came in through the Emergency Room. She has a stage III lung cancer diagnosed 2 years ago. She has been on radiation therapy up at [facility]. The patient is on 4 liters, she is extremely short of breath, severe protein malnutrition. The patient also had multiple other medical problems as she deteriorates overall from her lung cancer, not eating well and the like. She still goes to [facility]. In any case, the patient has increased shortness of breath, and apparently, she has become progressively worse despite use of her breathing treatments at home. PAST MEDICAL HISTORY: As noted, stage III lung cancer with left lung lobectomy and has had chemotherapy, but has stopped that, apparently it was not working. She has had history of congestive heart failure, hypertension, emphysema, bronchitis, lung cancer, quit a year ago on her smoking. IMMUNIZATIONS: Influenza vaccination up-to-date. FAMILY HISTORY: Positive for coronary artery disease. ALLERGIES: No known allergies. SOCIAL HISTORY: The patient has about a 50-60 pack year history of smoking. Denies alcohol or drug use. She is a full code. HOME MEDICATIONS: Keflex; azithromycin; valacyclovir 1000 mg t.i.d. for severe herpes zoster and postherpetic neuralgia on her left flank area; DuoNeb treatments 4 times a day; Percocet 7.5/325, and prednisone 20 mg daily for her chronic COPD. REVIEW OF SYSTEMS: Positive for weight loss, general shortness of breath. Denies chest pain. Denies abdominal pain. Just general weakness and fatigue. Neurologically, the patient is baseline for her, although she is very short of breath and gets short of breath with talking. PHYSICAL EXAMINATION: GENERAL: This is a pleasant white female, looking older than stated age, almost markedly cachectic. VITAL SIGNS: Blood pressure 140/90, respiratory rate 28, pulse 115, afebrile, 4.5 liters at 95%. The patient had gone down into the mid 80s on 4 liters and had to be bumped up temporarily while we use aggressive pulmonary toilet. Otherwise, the patient's skin has kind of waxy appearance. HEENT: The head was atraumatic, normocephalic. Eyes: PERRLA without jaundice. The mouth and throat were normal. NECK: Supple. No thyromegaly. LUNGS: Diminished throughout. Poor movement of air. CARDIOVASCULAR: Regular sinus rhythm, S1, S2, tachycardic. ABDOMEN: Soft, scaphoid. EXTREMITIES: No clubbing, cyanosis, nor edema. Marked muscle skeletal loss noted throughout her upper and lower extremities. NEUROLOGIC: The patient's speech was fluent, spontaneous, fairly weak, gets short of breath with just talking. LABORATORY DATA: White count 9, hemoglobin and hematocrit of 13 and 42. Sodium and potassium 139 and 4.7, BUN and creatinine 7 and 0.8, glucose ____. Lactic acid was elevated 2.5. BNP of approximately 2500. The patient's influenza negative. COVID-19 pending. The patient's blood cultures apparently no growth so far. The patient is on azithromycin presently and will continue to be monitored accordingly as we progress. Otherwise, may start her on some Rocephin. The patient's chest x-ray and CTA did not show any PE. Right upper lobe spiculated opacity 1.8 cm, stable left perihilar soft tissue thickening and distortion probably post-radiation. IMPRESSION: The patient obviously is having trouble breathing with acute on top of chronic respiratory failure; lung cancer, advanced stage III; severe protein malnutrition. The patient has elevated lactic acid, hyperglycemia, tobacco abuse, sinus tachycardia. PLAN: Continue with aggressive pulmonary toilet as well as with her prednisone and see if we can turn this around and make further evaluation on her as indicated. She is being held off on her DuoNeb treatments until we get the COVID-19 back. She is using an albuterol-ipratropium puffer. GILMA DURAN MD DR: PAIGE/smiley JOB#: [id number] / [id number]
[2020-01-17 20:00] VITALS: BP 112/65
[2020-01-18] MEDS: oxyCODONE/APAP 7.5/325 1 TAB TABLET PO PRN ×2 (02:18→13:31)
[2020-01-18 02:28] VITALS: BP 129/81
[2020-01-18 06:15] VITALS: BP 126/69
[2020-01-18] MEDS: AZITHROMYCIN 250 MG TABLET. PO SCH (09:04)
[2020-01-18] MEDS: predniSONE 20 MG TABLET PO SCH (09:04)
[2020-01-18 10:53] VITALS: BP 125/75
[2020-01-18] MEDS ORDERED: PRED20TA PO (12:16)
== END 2020-01-18 13:43 | disposition home or self-care (01) | DRG 180 ==
LOC: ER 11:12 → 1 SOUTH 15:00
PROVIDERS: ADMIT Family Medicine; ATTEND Family Medicine
DX: C34.90 Malignant neoplasm of unspecified part of unspecified bronchus or lung (principal); J96.20 Acute and chronic respiratory failure, unspecified whether with hypoxia or hypercapnia; E43 Unspecified severe protein-calorie malnutrition; Z68.1 Body mass index [BMI] 19.9 or less, adult; J43.9 Emphysema, unspecified; I11.0 Hypertensive heart disease with heart failure; I50.9 Heart failure, unspecified; Z20.828 Contact with and (suspected) exposure to other viral communicable diseases; Z72.0 Tobacco use; Z82.49 Family history of ischemic heart disease and other diseases of the circulatory system; Z92.21 Personal history of antineoplastic chemotherapy; Z92.3 Personal history of irradiation
CPT/HCPCS: 36415; 71045; 71275; 80053; 82947; 83605; 83735; 83880; 84484; 85025; 87040; 87804; 93005; 93971; 94640; J0456; J0696; J1100; J2060; J2543; J3370; J7040; J7512; Q9967; U0003; J7030

== ENCOUNTER → 2020-06-17 | Day surgery (SDC) | payer MEDICARE ==
[~2020-06-17] MED LIST changes: +ACETAMINOPHEN 500 MG TABLET PO PRN; +ATOR20TA58 PO; +BALANCED SALT IRRIG SOLN NO.2 500 ML IO ONE; +BENA20TA4 PO; +BENZONATATE 100 MG CAPSULE. PO PRN; +BRIMONIDINE 0.2% OPHTH SOLUTION 5ML BOTTLE. OS ONE; +CEFUROXIME OPHTH 4 MG/0.4 ML SYRINGE. OS ONE; +CHONDROIT-SOD-HYALURONATE KIT. OS ONE; +IBUPROFEN 200 MG TABLET PO PRN; +IPRATRPIUM/ALBUTEROL 0.5/2.5MG 3 ML NEBU. NEB PRN; +IV RINGERS SOLUTION,LACTATED 1,000 ML IV SCH; +LIDO/EPI IN BSS OPHTH 2.7 ML SYRINGE. OS ONE; +LIDOCAINE 2% JELLY 6ML IN APPLICATOR. ONE; +MIDAZOLAM HCL PF 2 MG/2 ML VIAL. IV ONE; +MIDAZOLAM HCL PF 2 MG/2 ML VIAL. ONE; +ONDANSETRON PF 4 MG/2 ML VIAL. IV PRN; +PHENYLEPHRINE 10% OPHTH SOLUTION 5ML BOTTLE. OS PRN; +POVIDONE-IODINE 5% OPHTH SOLUTION 30ML BOTTLE. OS ONE; +POVIDONE-IODINE 5% OPHTH SOLUTION 30ML BOTTLE. OS PRN; +PROPARACAINE 0.5% OPHTH SOLUTION 15ML BOTTLE. OS ONE; +PROPARACAINE 0.5% OPHTH SOLUTION 15ML BOTTLE. OS PRN; +prednisoLONE ACETATE 1% OPHTH SUSPENSION 5ML BOTTLE. OS ONE
[2020-06-17] MEDS: PHENYLEPHRINE 2.5% OPHTH SOLUTION 2ML BOTTLE. OS SCH ×3 (11:41→11:56)
[2020-06-17] MEDS: KETOROLAC TROMETHAMINE 0.5% OPHTH SOLUTION BOTTLE. OS SCH ×2 (11:41→11:48)
[2020-06-17] MEDS: TOBRAMYCIN 0.3% OPHTH SOLUTION 5ML BOTTLE. OS SCH ×2 (11:41→11:48)
[2020-06-17] MEDS: TROPICAMIDE 1% OPHTH SOLUTION 15ML BOTTLE. OS SCH ×3 (11:41→11:56)
--- NOTE | 2020-06-17 13:14 | PDOC4 ---
SURGEON: Harshil Odom MD Date of Procedure: 06/17/20 PREOP Diagnosis Visually significant cataract: Left Eye OS POSTOP Diagnosis Same PROCEDURE: Phaco w/ posterior chamber IOL: Left Eye OS ANESTHESIA Deep forniceal periocular 2% Lidocaine jelly Rhonda/retro bulbar block with 2% Lidocaine with 0.5% Marcaine DESCRIPTION OF PROCEDURE The risks, benefits, and alternatives were discussed with the patient who elected to proceed. Informed consent was obtained in writing and placed in the chart After anesthetizing the eye topically, the patient was taken to the operating room, and the operative eye was prepped and draped in the usual sterile fashion for ocular surgery. A wire lid speculum was placed. A 1-mm clear corneal paracentesis incision was created with the side-port blade at a position three o'clock hours clockwise from the temporal cornea. Then, 1% non-preserved Lidocaine with epinephrine was injected into the anterior chamber followed by viscoelastic. Cotton-tipped applicators were used to stabilize the globe, and a 2.4 mm keratome was used to create a self-sealing incision in clear cornea at the temporal limbus. The Utrata forceps were used to create a continuous curvilinear capsulorrhexis. Balanced saline solution was injected via cannula beneath the capsulorrhexis edge to hydrodissect the lens nucleus and cortex from the lens capsule. The phacoemulsification handpiece and a chopping instrument were then used to remove the lens nucleus. The remaining epinuclear material and cortex were removed with the irrigation/aspiration handpiece. Vis coelastic was used to re-inflate the lens capsule, and the intraocular lens was injected directly into the capsular bag. The corneal wound edges were hydrated with balanced salt solution on a cannula and the irrigation/aspiration handpiece was used to extract the remaining viscoelastic. Cefuroxime 0.1mg/ml / Vigamox 0.5% was injected into the anterior chamber intracamerally. The wounds were inspected and found to be watertight at an appropriate intraocular pressure. Topical antibiotic drops were placed on the corneal surface. LRI: No If Yes, Number [] Rogers [] Length [] degrees Depth [] microns Incision Rogers: 180 Toric Lens Rogers [] Patch/shield with Maxitrol/Tobradex/Erythromycin ointment: Yes No Co-managed patients/postop examination stable for co-management with referring doctor. EBL EBL: None SPECIMANS COLLECTED Specimens Collected: None HARSHIL ODOM MD June 17, 2020 13:14
[2020-06-17 13:21] VITALS: BP 133/71
== END | disposition home or self-care (01) ==
LOC: SURG 11:23
PROVIDERS: ATTEND Ophthalmology
DX: H25.12 Age-related nuclear cataract, left eye (principal); J43.9 Emphysema, unspecified; I50.9 Heart failure, unspecified; I11.0 Hypertensive heart disease with heart failure; I25.10 Atherosclerotic heart disease of native coronary artery without angina pectoris; Z85.118 Personal history of other malignant neoplasm of bronchus and lung; Z79.899 Other long term (current) drug therapy; Z98.890 Other specified postprocedural states; Z92.3 Personal history of irradiation; Z82.49 Family history of ischemic heart disease and other diseases of the circulatory system
CPT/HCPCS: 66984; J2250; V2632

== ENCOUNTER 2020-08-23 13:18 | Emergency (ER) | payer MEDICARE ==
[~2020-08-23] VITALS: Ht 154.9 cm; Wt 46.5 kg
[~2020-08-23 13:18] MED LIST changes: -ACETAMINOPHEN 500 MG TABLET PO PRN; -BALANCED SALT IRRIG SOLN NO.2 500 ML IO ONE; -BENZONATATE 100 MG CAPSULE. PO PRN; -BRIMONIDINE 0.2% OPHTH SOLUTION 5ML BOTTLE. OS ONE; -CEFUROXIME OPHTH 4 MG/0.4 ML SYRINGE. OS ONE; -CHONDROIT-SOD-HYALURONATE KIT. OS ONE; -IBUPROFEN 200 MG TABLET PO PRN; -IPRATRPIUM/ALBUTEROL 0.5/2.5MG 3 ML NEBU. NEB PRN; -IV RINGERS SOLUTION,LACTATED 1,000 ML IV SCH; -LIDO/EPI IN BSS OPHTH 2.7 ML SYRINGE. OS ONE; -LIDOCAINE 2% JELLY 6ML IN APPLICATOR. ONE; -MIDAZOLAM HCL PF 2 MG/2 ML VIAL. IV ONE; -MIDAZOLAM HCL PF 2 MG/2 ML VIAL. ONE; -ONDANSETRON PF 4 MG/2 ML VIAL. IV PRN; -PHENYLEPHRINE 10% OPHTH SOLUTION 5ML BOTTLE. OS PRN; -POVIDONE-IODINE 5% OPHTH SOLUTION 30ML BOTTLE. OS ONE; -POVIDONE-IODINE 5% OPHTH SOLUTION 30ML BOTTLE. OS PRN; -PROPARACAINE 0.5% OPHTH SOLUTION 15ML BOTTLE. OS ONE; -PROPARACAINE 0.5% OPHTH SOLUTION 15ML BOTTLE. OS PRN; -prednisoLONE ACETATE 1% OPHTH SUSPENSION 5ML BOTTLE. OS ONE
--- NOTE | 2020-08-23 14:00 | PHYS DOC ---
Past History Past Medical History: Cancer, CHF, COPD, Hypertension Past Surgical History: Other Additional Past Surgical Histo: Left lung lobectomy Smoking: Quit Less Than 1 Year Alcohol Use: None Drug Use: None General Adult EDM: Chief Complaint: SHORTNESS OF BREATH HPI: HPI: Patient is a 69-year-old female who presents with shortness of breath. She has a history of COPD and states that her exacerbation started the's morning. Patient reports using her inhalers and breathing treatment at home with no relief. Patient wears 4 L nasal cannula at home all the time. "I feel like I have been wheezing a lot today". Patient denies fever. Patient has a history of lung cancer but is not receiving any treatment at this time. Patient has history of CHF, COPD, hypertension, lung cancer. Review of Systems: Review of Systems: Constitutional: Denies fever or chills Eyes: Denies change in visual acuity HENT: Denies nasal congestion or sore throat Respiratory: Reports cough and shortness of breath Cardiovascular: Denies chest pain or edema GI: Denies abdominal pain, nausea, vomiting, bloody stools or diarrhea : Denies dysuria Musculoskeletal: Denies back pain or joint pain Integument: Denies rash Neurologic: Denies headache, focal weakness or sensory changes Endocrine: Denies polyuria or polydipsia Lymphatic: Denies swollen glands Psychiatric: Denies depression or anxiety Allergies: Allergies: Allergies Coded Allergies Type Severity Reaction Last Updated Verified No Known Drug Allergies 06/17/20 No Physical Exam: PE: Constitutional: Well developed, well nourished, no acute distress, non-toxic appearance. [] HENT: Normocephalic, atraumatic, bilateral external ears normal, oropharynx moist, no oral exudates, nose normal. [] Eyes: PERRLA, EOMI, conjunctiva normal, no discharge. [] Neck: Normal range of motion, no tenderness, supple, no stridor. [] Cardiovascular:Heart rate regular rhythm, no murmur [] Lungs & Thorax: Wheezing throughout on auscultation Abdomen: Bowel sounds normal, soft, no tenderness, no masses, no pulsatile masses. [] Skin: Warm, dry, no erythema, no rash. [] Back: No tenderness, no CVA tenderness. [] Extremities: No tenderness, no cyanosis, no clubbing, ROM intact, no edema. [] Neurologic: Alert and oriented X 3, normal motor function, normal sensory function, no focal deficits noted. [] Psychologic: Affect normal, judgement normal, mood normal. [] Current Patient Data: Vital Signs: Vital Signs Date Time Temp Pulse Resp B/P (MAP) Pulse Ox O2 Delivery O2 Flow Rate FiO2 08/23/20 13:27 97.5 110 22 105/94 100 Nasal Cannula 4.0 EKG: EKG: [] Radiology/Procedures: Radiology/Procedures: []INDICATION: Reason: SHORTNESS OF BREATH / Spl. Instructions: / History: COMPARISON: January 2020 FINDINGS: Single view of chest obtained. Right-sided port with tip projecting over SVC. Calcific atherosclerosis. Degenerative changes of the spine. Hyperexpanded lungs with patchy opacities bilaterally There is some suspected compression deformities as well as scoliotic curvature. IMPRESSION: * Patchy opacities in the bilateral lungs. Could be from causes such as bilateral infiltrate or edema superimposed on chronic lung disease such as emphysema. Electronically signed by: Carmelo Larson MD (08/23/2020 2:30 PM) [id number] Exam: CT chest with contrast INDICATION: Shortness of breath TECHNIQUE: Sequential axial images through the chest obtained following the administration of 75 mL of Isovue-370 IV contrast. Sagittal and coronal reformatted images were reconstructed from the axial data and reviewed. 3-D reformatted images were reconstructed from the axial data and reviewed. Exposure: One or more of the following in the visualized dose reduction techniques were utilized for this examination: 1. Automated exposure control 2. Adjustment of the MA and/or KV according to patient size 3. Use of iterative of reconstructive technique Comparisons: Chest x-ray same day FINDINGS: Visualized portion of the thyroid are unremarkable. No enlarged mediastinal lymph nodes are identified. Heart size is normal. Small pericardial effusion. Thoracic aorta has a normal course and caliber. Pulmonary artery is not enlarged. No pulmonary embolus identified within the main, lobar or segmental pulmonary arteries. Airways are patent. There is a spiculated nodule in the right upper lobe which measures approximately 1.8 cm seen on series 4 image 38, similar in appearance when compared to the prior study. Consolidative changes in the left lower lobe. Pleural calcifications noted on the left. No pleural effusion. Visualized upper abdomen is unremarkable. Compression fractures of the mid thoracic vertebral bodies are noted which appears similar when compared to 08/23/2020 IMPRESSION: 1. No pulmonary embolus identified within the main, lobar or segmental pulmonary arteries. 2. Interval development of consolidative changes in the left lower lobe favored to be infectious or inflammatory in etiology. 3. Similar-appearing spiculated nodule in the right upper lobe measuring approximately 1.8 cm. Again this is concerning for primary lung neoplasm. As before correlation with PET/CT or continued follow-up chest CT in 3 months is recommended to reassess. Electronically signed by: Kristie Fofana MD (08/23/2020 3:11 PM) [facility] Heart Score: C/O Chest Pain: No Risk Factors: Risk Factors: DM, Current or recent (<one month) smoker, HTN, HLP, family history of CAD, obesity. Risk Scores: Score 0 - 3: 2.5% MACE over next 6 weeks - Discharge Home Score 4 - 6: 20.3% MACE over next 6 weeks - Admit for Clinical Observation Score 7 - 10: 72.7% MACE over next 6 weeks - Early Invasive Strategies Course & Med Decision Making: Course & Med Decision Making Pertinent Labs and Imaging studies reviewed. (See chart for details) [] 69-year-old female presents with shortness of breath. Patient wears 4 L nasal cannula at home. Patient has a history of COPD and CHF. Patient was using breathing treatments at home with no relief. Patient states this is like a normal COPD exacerbation for her. Patient is afebrile. Patient heart rate was 112. CTA was ordered to rule out PE, which was negative. BNP was [address]84. All other labs were unremarkable. Troponin was negative. DuoNeb treatment was ordered along with 125 Solu-Medrol. Patient states that her symptoms have improved. No wheezing heard on auscultation. Oxygen requirement is consistent with at home. Denies shortness of breath, chest pain. Patient is requesting to be discharged to home. Patient is most likely suffering from COPD exacerbation. Instructed patient she needs to call her PCP and make a follow-up appointment for tomorrow. Patient was sent home with a prescription for prednisone for 5 days. Patient states that she understands discharge instructions and appreciative of care. Patient is hemodynamically stable. Dragon Disclaimer: [employer] Disclaimer: This electronic medical record was generated, in whole or in part, using a voice recognition dictation system. Departure Departure: Impression: Primary Impression: COPD exacerbation Additional Impression: CHF (congestive heart failure) Qualified Codes: I50.9 - Heart failure, unspecified Disposition: HOME / SELF CARE / HOMELESS Condition: STABLE Referrals: GILMA DURAN MD (PCP) Patient Instructions: Shortness of Breath, [id number] Additional Instructions: You are seen in the emergency room for COPD exacerbation. You were given your breathing treatment in the emergency room along with steroids. You stated that your symptoms had improved. Please call your PCP in the morning and make a follow-up appointment. Please return to the emergency room if you have worsening symptoms or concerns. EMERGENCY DEPARTMENT GENERAL DISCHARGE INSTRUCTIONS Thank you for coming to [facility] (ED) today and trusting us with you care. We trust that you had a positivie experience in our Emergency Department. If you wish to speak to the department management, you may call the director at [phone]. YOUR FOLLOW UP INSTRUCTIONS ARE FOLLOWS: 1. Do you have a private Doctor? If you do not have a private doctor, please ask for a resource list of physicians or clinics that may be able to assist you with follow up care. 2. The Emergency Physician has interpreted your x-rays. The X-Ray specialist will also review them. If there is a change in the findings, you will be notified in 48 hours when at all possible. 3. A lab test or culture has been done, your results will be reviewed and you will be notified if you need a change in treatment. ADDITIONAL INSTRUCTIONS AND INFORMATION: 1. Your care today has been supervised by a physician who is specially trained in emergency care. Many problems require more than one evaluation for a complete diagnosis and treatment. We recommend that you schedule your follow up appointment as recommended to ensure complete treatment of you illness or injury. If you are unable to obtain follow up care and continue to have a problem, or if your condition worsens, we recommend that you return to the ED. 2. We are not able to safely determine your condition over the phone nor are we able to give sound medical advice over the phone. For these safety reasons, if you call for medical advice we will ask you to come to the ED for further evaluation. 3. If you have any questions regarding these discharge instructions please call the ED at [phone]. SAFETY INFORMATION: In the interest of safety, wellness, and injury prevention; we encourage you to wear your sealbelt, if you smoke; quite smoking, and we encourage family to use a protective helmet for bicycling and other sporting events that present an increased risk for head injury. IF YOUR SYMPTOMS WORSEN OR NEW SYMPTOMS DEVELOP, OR YOU HAVE CONCERNS ABOUT YOUR CONDITION; OR IF YOUR CONDITION WORSENS WHILE YOU ARE WAITING FOR YOUR FOLLOW UP APPOINTMENT; EITHER CONTACT YOUR PRIMARY CARE DOCTOR, THE PHYSICIAN WHOSE NAME AND NUMBER YOU WERE GIVEN, OR RETURN TO THE ED IMMEDIATELY. Scripts Levofloxacin (LEVOFLOXACIN) 750 Mg Tablet 1 TAB PO DAILY for copd exacerbation for 5 Days, #5 TAB Prov: DEZ WOOD APRN 08/23/20 Prednisone (PREDNISONE) 20 Mg Tablet 40 MG PO DAILY for copd exacerbation for 5 Days, #10 TAB Prov: DEZ WOOD APRN 08/23/20 DEZ WOOD APRN Aug 23, 2020 14:00
--- NOTE | 2020-08-23 14:10 | EKG ---
[address] [address] Test Date: 2020-08-23 Test Time: 13:29:36 Pat Name: KATARINA JUNG Department: Room: Gender: F Fire Assistant: GIGI : [id number] Requested By: DEZ WOOD Order Number: [id number] Reading MD: Measurements Intervals [place] Rate: 112 P: 51 [place]: 124 QRS: 192 QRSD: 88 T: -10 QT: 324 QTc: 444 Interpretive Statements SINUS TACHYCARDIA ABNORMAL RIGHT SUPERIOR AXIS DEVIATION R-S TRANSITION ZONE IN V LEADS DISPLACED TO THE LEFT LOW LIMB LEAD VOLTAGE CONSIDER RIGHT VENTRICULAR HYPERTROPHY QRS(T) CONTOUR ABNORMALITY CONSIDER ANTEROSEPTAL MYOCARDIAL DAMAGE T ABNORMALITY IN ANTERIOR LEADS INFERIOR LEADS ABNORMAL ECG RI6.02 No previous ECG available for comparison
[2020-08-23] MEDS ORDERED: IOHEXOL 350 MG/ML 100 ML VIAL. IV ONE (14:15)
[2020-08-23] MEDS ORDERED: CONTRAST GIVEN. MC PRN (14:15)
[2020-08-23] MEDS ORDERED: ASPIRIN CHEWABLE 81 MG TABLET. PO ONE (14:15)
--- NOTE | 2020-08-23 14:33 | RAD ---
INDICATION: Reason: SHORTNESS OF BREATH / Spl. Instructions: / History: COMPARISON: January 2020 FINDINGS: Single view of chest obtained. Right-sided port with tip projecting over SVC. Calcific atherosclerosis. Degenerative changes of the spine. Hyperexpanded lungs with patchy opacities bilaterally There is some suspected compression deformities as well as scoliotic curvature. IMPRESSION: * Patchy opacities in the bilateral lungs. Could be from causes such as bilateral infiltrate or amari a superimposed on chronic lung disease such as emphysema. Electronically signed by: Carmelo Larson MD (08/23/2020 2:30 PM) [id number]
[2020-08-23 14:38] LABS: BASO % 0 % (0-3); EOS % 0 % (0-3); HEMOGLOBIN 11.8 g/dL (12.0-15.5); LYMPH # 1.9 x10^3/uL (1.0-4.8); LYMPH % 23 % (24-48); MEAN CORPUSCULAR HEMOGLOBIN 31 pg (25-35); MEAN CORPUSCULAR HGB CONC 33 g/dL (31-37); MEAN CORPUSCULAR VOLUME 93 fL (79-100); MONO # 0.6 x10^3/uL (0.0-1.1); MONO % 7 % (0-9); NEUT # 5.8 x10^3uL (1.8-7.7); NEUT % 70 % (31-73); PLATELET COUNT 301 x10^3/uL (140-400); RED BLOOD COUNT 3.86 x10^6/uL (3.50-5.40); RED CELL DISTRIBUTION WIDTH 17.4 % (11.5-14.5); WHITE BLOOD COUNT 8.3 x10^3/uL (4.0-11.0)
[2020-08-23 14:40] LABS: CALCIUM 8.6 mg/dL (8.5-10.1); CREATININE 0.6 mg/dL (0.6-1.0); GFR 99.7; POTASSIUM 4.3 mmol/L (3.5-5.1)
[2020-08-23 14:53] LABS: ALBUMIN 2.5 g/dL (3.4-5.0); ALBUMIN/GLOBULIN RATIO 0.6 (1.0-1.7); TOTAL BILIRUBIN 0.2 mg/dL (0.2-1.0); TOTAL PROTEIN 6.5 g/dL (6.4-8.2)
--- NOTE | 2020-08-23 15:14 | RAD ---
Exam: CT chest with contrast INDICATION: Shortness of breath TECHNIQUE: Sequential axial images through the chest obtained following the administration of 75 mL o f Isovue-370 IV contrast. Sagittal and coronal reformatted images were reconstructed from the axial d kellee and reviewed. 3-D reformatted images were reconstructed from the axial data and reviewed. Exposure: One or more of the following in the visualized dose reduction techniques were utilized for this examination: 1. Automated exposure control 2. Adjustment of the MA and/or KV according to patient size 3. Use of iterative of reconstructive technique Comparisons: Chest x-ray same day FINDINGS: Visualized portion of the thyroid are unremarkable. No enlarged mediastinal lymph nodes are identifie d. Heart size is normal. Small pericardial effusion. Thoracic aorta has a normal course and caliber. Pul monary artery is not enlarged. No pulmonary embolus identified within the main, lobar or segmental pu lmonary arteries. Airways are patent. There is a spiculated nodule in the right upper lobe which measures approximately 1.8 cm seen on series 4 image 38, similar in appearance when compared to the prior study. Consolidat wilma changes in the left lower lobe. Pleural calcifications noted on the left. No pleural effusion. Visualized upper abdomen is unremarkable. Compression fractures of the mid thoracic vertebral bodies are noted which appears similar when debora red to 08/23/2020 IMPRESSION: 1. No pulmonary embolus identified within the main, lobar or segmental pulmonary arteries. 2. Interval development of consolidative changes in the left lower lobe favored to be infectious or inflammatory in etiology. 3. Similar-appearing spiculated nodule in the right upper lobe measuring approximately 1.8 cm. Again this is concerning for primary lung neoplasm. As before correlation with PET/CT or continued follow- up chest CT in 3 months is recommended to reassess. Electronically signed by: Kristie Fofana MD (08/23/2020 3:11 PM) [facility]
[2020-08-23] MEDS ORDERED: methylPREDNISolone SOD SUCC PF 125 MG/2 ML VIAL. IV ONE (16:15)
[2020-08-23] MEDS ORDERED: IPRATRPIUM/ALBUTEROL 0.5/2.5MG 3 ML NEBU. NEB ONE (16:15)
[2020-08-23 17:04] VITALS: BP 105/51
[2020-08-23] MEDS ORDERED: PRED20TA PO (17:16)
[2020-08-23] MEDS ORDERED: LEVO750T5 PO (17:23)
== END 2020-08-23 17:30 | disposition home or self-care (01) ==
LOC: ER 13:18
DX: J44.1 Chronic obstructive pulmonary disease with (acute) exacerbation (principal); I11.0 Hypertensive heart disease with heart failure; I50.9 Heart failure, unspecified; Z87.891 Personal history of nicotine dependence
CPT/HCPCS: 36415; 71045; 71275; 80053; 83880; 84484; 85025; 85379; 93005; 94640; 96374; 99285; J2930; Q9967